=== PATIENT | male | born 1960 | race Caucasian/White ===

== ENCOUNTER → 2023-09-30 | Outpatient (CLI) | payer MEDICARE, OTHER, SELFPAY ==
--- NOTE | 2023-10-05 00:15 | DI.NM.S_ITS ---
DATE OF SERVICE: 09/30/2023 PROCEDURE: Pharmacological perfusion study. INDICATIONS: Fatigue with underlying diabetes mellitus, hypertension and hyperlipidemia. RADIOPHARMACEUTICAL: 27.4 millicuries technetium-99m Myoview IV was injected at stress and 25.3 millicuries technetium-99m Myoview IV was injected at rest. CARDIAC STRESS: The patient underwent initially exercise stress test. He walked on Usman protocol for 5 minutes and 51 seconds and achieved maximum heart rate of 120, which was 77% of target heart rate. However, he could not keep up with treadmill. He had fatigue and shortness of breath. Hence test was discontinued. It was converted to pharmacological perfusion study. During exercise, patient achieved 4.6 METs of workload and LAMAR positive 44%. Rhythm was sinus at rest. Short grouped beating was seen as well during rest, and there was poor R-wave progression. During stress, no convincing ischemic EKG changes or significant arrhythmias seen. The patient remained hemodynamically stable during Lexiscan stress test. Resting blood pressure was 122/86, and during exercise peak blood pressure was 162/84. During Lexiscan, also, no significant arrhythmias. No chest pain. Had moderate shortness of breath. RAW DATA: There is increased subdiaphragmatic activity. The patient's weight is 281 pounds. GATED STUDY: Resting LV ejection fraction 72 and stress LV ejection fraction 84% without any obvious wall motion abnormalities. Resting end- diastolic volume 104 mL. TID ratio 0.67, which is within normal limits. Lung/heart ratio 0.20, which is within normal limits. MYOCARDIAL PERFUSION SCAN: Stress supine, resting supine and stress prone images were compared to each other. Stress supine and resting supine images revealed small size, mildly decreased perfusion of distal inferolateral wall and distal inferior wall which got completely resolved during stress prone images suggestive of tissue attenuation like diaphragmatic tissue attenuation artifact. No convincing ischemia infarction during stress prone images. CONCLUSION: This is a normal myocardial perfusion study with evidence of diaphragmatic tissue attenuation artifact, which got resolved during stress prone images. Overall preserved left ventricular function. Poor exercise tolerance. The patient could not keep up with treadmill and also had fatigue and shortness of breath. As far as perfusion scan is concerned, this is a low-risk myocardial perfusion scan. Yaron Culp - /misha/ doc#: [id number]/job#: [id number] dd: 10/04/2023 16:27:00 dt: 10/05/2023 00:03:00 DICTATING MD/COPIES TO: Charlotte Alberts MD COPIES MNE: DENG;
== END ==
PROVIDERS: PCP Family Medicine; Referring Provider Internal Medicine; Visit Provider Internal Medicine
DX: R53.83 Other fatigue (principal); E11.9 Type 2 diabetes mellitus without complications; I10 Essential (primary) hypertension; E78.5 Hyperlipidemia, unspecified; Z91.89 Other specified personal risk factors, not elsewhere classified
CPT/HCPCS: 78452; 93017; A9502; J2785